=== PATIENT | male | born 1960 | race Hispanic/Latino ===

== ENCOUNTER 2016-09-14 12:08 | Inpatient (IN) | payer MEDICAID ==
[2016-09-14 14:58] VITALS: BMI 21.9
--- NOTE | 2016-09-14 17:02 | CP.PCM.HP ---
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 CTA head showed R M1 occulsion. Patient is transferred from [facility]. Patient presented with L sided weakness, and is currently about a 1/5 upper and lower extremities with some facial droop. Patient did not require any surgical intervention and was transferred here for further rehab needs. ROS: per HPI, 12 systems reviewed and negative PMH: remote hx of asthma, psoriasis, implanted loop recorder PSH: none FH: HTN, CVA SH: 1 cigarette daily, "many years" occasional marijuana use. Meds: as below Allergies: NKDA Vitals: reviewed and currently stable Exam: GEN: WDWN, alert, cooperative L sided mild facial droop HEENT: NCAT, PERRL, EOMI NECK: supple, no JVD, no lymphadenopathy CARDIAC: +S1S2 RRR LUNG: CTAB No WRR ABD: SOFT NT ND BSX4 NO MASSES NO HSM EXT: +pedal pulses,L sided weakness NEURO: AAOx3 SKIN warm, dry PSYCH normal mood, normal affect Labs: reviewed in chart Active Medications: Allergies No Known Allergies Allergy (Verified 09/14/16 13:30) Height & Weight Height 5 ft 8 in Weight 144 lb Start Date/Time Active Medications 09/14/16 17:00 Betamethasone Valerate [Valisone] 1 applic TP BID 09/14/16 22:00 Heparin 5,000 units SC Q8 Anticoagulation Clinical Indication: DVT/PE Prevention 09/15/16 09:00 Aspirin [Aspirin Chewable] 81 mg PO DAILY Atorvastatin [Lipitor] 80 mg PO HS Assessment and Plan: 55 year old male PMH remote hx of asthma, psoriasis, implanted loop recorder presents to [facility] 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 CTA head showed R M1 occulsion. Patient is transferred from [facility]. Patient presented with L sided weakness, and is currently about a 1/5 upper and lower extremities with some facial droop. Patient did not require any surgical intervention and was transferred here for further rehab needs. 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 CTA head showed R M1 occulsion cont ASA, statin PT / OT / ST Physiatry consult Dr. Siu SCDs Heparin for VTE ppx Present on Admission - Present on Admission Any Indicators Present on Admission: No Past Patient History - Past Medical History & Family History Past Medical History?: Yes - Past Social History Smoking Status: Light Smoker < 10 Cigarettes Daily - CARDIAC Hx Cardiac Disorders: Yes Other/Comment: implanted loop recorder 09/10/16 - PULMONARY Hx Asthma: Yes - NEUROLOGICAL Hx Neurological Disorder: No - HEENT Hx HEENT Problems: No - RENAL Hx Chronic Kidney Disease: No - ENDOCRINE/METABOLIC Hx Endocrine Disorders: No - HEMATOLOGICAL/ONCOLOGICAL Hx Blood Disorders: No - INTEGUMENTARY Hx Psoriasis: Yes - MUSCULOSKELETAL/RHEUMATOLOGICAL Hx Musculoskeletal Disorders: No Hx Falls: No - GASTROINTESTINAL Hx Gastrointestinal Disorders: No - GENITOURINARY/GYNECOLOGICAL Hx Genitourinary Disorders: No - PSYCHIATRIC Hx Psychophysiologic Disorder: No Hx Substance Use: Yes - SURGICAL HISTORY Hx Surgeries: No - ANESTHESIA Hx Anesthesia: No Meds Allergies/Adverse Reactions: Allergies Allergy/AdvReac Type Severity Reaction Status Date / Time No Known Allergies Allergy Verified 09/14/16 13:30 Results - Vital Signs Recent Vital Signs: Last Vital Signs Temp 98.4 F 09/14/16 15:59 Pulse 63 09/14/16 15:59 Resp 21 09/14/16 15:59 BP 162/61 H 09/14/16 15:59 Pulse Ox 96 09/14/16 15:59
--- NOTE | 2016-09-14 17:37 | CP.PCM.CON ---
History of Present Illness - History of Present Illness History of Present Illness: Dr Siu PMR consultation on Gerardo Worrell, born 1960, who has been admitted to [facility] for acute inpatient rehabilitation following an admission at [facility] with acute onset of left HP secondary to a right MCA distribution infarct. He is right hand dominant. 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 Review of Systems - Constitutional Constitutional: absent: Anorexia, Chills - EENT Eyes: absent: Blurred Vision Ears: absent: Decreased Hearing Nose/Mouth/Throat: absent: Nasal Congestion - Cardiovascular Cardiovascular: absent: Chest Pain - Respiratory Respiratory: absent: Cough, Dyspnea - Gastrointestinal Gastrointestinal: absent: Abdominal Pain - Musculoskeletal Musculoskeletal: absent: Arthralgias, Back Pain - Integumentary Integumentary: absent: Bleeding Lesions - Neurological Neurological: absent: Abnormal Movements Past Patient History - Past Medical History & Family History Past Medical History?: Yes - Past Social History Smoking Status: Light Smoker < 10 Cigarettes Daily Alcohol: Occasional Drugs: Denies Home Situation {Lives}: Friends - CARDIAC Hx Cardiac Disorders: Yes Other/Comment: implanted loop recorder 09/10/16 - PULMONARY Hx Asthma: Yes - NEUROLOGICAL Hx Neurological Disorder: No - HEENT Hx HEENT Problems: No - RENAL Hx Chronic Kidney Disease: No - ENDOCRINE/METABOLIC Hx Endocrine Disorders: No - HEMATOLOGICAL/ONCOLOGICAL Hx Blood Disorders: No - INTEGUMENTARY Hx Psoriasis: Yes - MUSCULOSKELETAL/RHEUMATOLOGICAL Hx Musculoskeletal Disorders: No Hx Falls: No - GASTROINTESTINAL Hx Gastrointestinal Disorders: No - GENITOURINARY/GYNECOLOGICAL Hx Genitourinary Disorders: No - PSYCHIATRIC Hx Psychophysiologic Disorder: No Hx Substance Use: Yes - SURGICAL HISTORY Hx Surgeries: No - ANESTHESIA Hx Anesthesia: No Meds Allergies/Adverse Reactions: Allergies Allergy/AdvReac Type Severity Reaction Status Date / Time No Known Allergies Allergy Verified 09/14/16 13:30 - Medications Medications: Current Medications Aspirin (Aspirin Chewable) 81 mg PO DAILY [facility] Betamethasone Valerate (Valisone) applic TP BID [facility] Heparin Sodium (Porcine) (Heparin) 5,000 units SC Q8 [facility] PRN Reason: Protocol Home Med (Atorvastatin [Lipitor]) 80 mg PO HS [facility] Physical Exam - Constitutional Appears: Non-toxic, No Acute Distress - Head Exam Head Exam: ATRAUMATIC, NORMAL INSPECTION, NORMOCEPHALIC - Eye Exam Eye Exam: EOMI - ENT Exam ENT Exam: Mucous Membranes Moist - Neck Exam Neck exam: Negative for: Meningismus - Respiratory Exam Respiratory Exam: NORMAL BREATHING PATTERN - Cardiovascular Exam Cardiovascular Exam: REGULAR RHYTHM - GI/Abdominal Exam GI & Abdominal Exam: Normal Bowel Sounds. absent: Distended, Firm - Extremities Exam Extremities exam: Negative for: calf tenderness, pedal edema - Neurological Exam Neurological exam: Alert, CN II-XII Intact, Oriented x3 - Skin Skin Exam: Warm Results - Vital Signs Recent Vital Signs: Last Vital Signs Temp 98.4 F 09/14/16 15:59 Pulse 63 09/14/16 15:59 Resp 21 09/14/16 15:59 BP 162/61 H 09/14/16 15:59 Pulse Ox 96 09/14/16 15:59 Assessment & Plan - Assessment and Plan (Free Text) Assessment: Gerardo had a right CVA, MCA distribution, with left HP 2-/5 UE 3-/5 LE he is lethargic now and this may have affected his MMT PT/OT to continue to help increase functional independence Team conference for d/c planning Pain: controlled Vascular: no evidence of DVT GI: No evidence of constipation or diarrhea Patient is an excellent acute rehabilitation candidate and will have focused speech, PT, OT and recreational therapy to help facilitate a safe and appropriate d/c plan Impairment code 01.1
--- NOTE | 2016-09-14 17:41 | CP.PCM.PN ---
Subjective - Date & Time of Evaluation Date of Evaluation: 09/14/16 Time of Evaluation: 17:40 - Subjective Subjective: right CVA, left HP Objective - Vital Signs/Intake and Output Vital Signs (last 24 hours): Temp Pulse Resp BP Pulse Ox 98.4 F 63 21 162/61 H 96 09/14/16 15:59 09/14/16 15:59 09/14/16 15:59 09/14/16 15:59 09/14/16 15:59 - Medications Medications: Current Medications Aspirin (Aspirin Chewable) 81 mg PO DAILY [facility] Atorvastatin Calcium (Lipitor) 80 mg PO HS [facility] Betamethasone Valerate (Valisone) 1 applic TP BID [facility] Heparin Sodium (Porcine) (Heparin) 5,000 units SC Q8 [facility] PRN Reason: Protocol Physiatry Overall Plan of Care - Overall Plan of Care Estimated Length of Stay in Weeks: 3 Rehab Impairment: Mobility, Gait, Speech, Balance, Coordination Etiologic Diagnosis: Cerebrovascular Accident Rehab/Medical Prognosis: Fair - Anticipated Interventions Physical Therapy:: Yes Occupational Therapy:: Yes Speech Therapy:: Yes Recreational Therapy:: Yes - Therapy Goals Bed Mobility: Supervision Ambulation: Supervision Functional Positional Changes:: Supervision - Discharge Plan Identification of Barriers to Discharge: Home Situation Discharge Destination: Home
[2016-09-14] MEDS ORDERED: Patient's Own Med (Atorvastatin [Lipitor] 80 MG) PO SCH (22:00)
--- NOTE | 2016-09-15 13:13 | PSY.TMCNF ---
Nursing - Vital Signs Vital Signs (Last 8 hours): Vital Signs 09/15/16 09/15/16 07:33 09:00 Temperature 97.5 F L 97.5 F L Pulse Rate 59 L 59 L Respiratory 20 20 Rate Blood Pressure 108/60 108/60 O2 Sat by Pulse 98 Oximetry Pain: 0 - Precautions: Precautions: Fall Prevention - Medications/Other Issues Comment: to follow as per nutrition protocol - Consults Comment: Dr. Siu - Toileting Toileting: Moderate Assistance - Bladder Management Bladder Pattern: Normal Voiding Method: Urinal Bladder Management: Moderate Assistance - Bowel Management Bowel Pattern: Normal Bowel Management: Moderate Assistance - Transfers Transfers: Moderate Assistance - ADL's ADL's: Moderate Assistance - Pain Management Comments: Denies pain - Patient/Family Teaching Comments: Post CVA care, Safety - Goals/Time Frame Comments: Per IPOC . Physical Therapy - Bed Mobility Bed Mobility: Contact Guard - Transfers Wheelchair to Mat: Contact Guard Sit to Stand: Contact Guard - Ambulation Level of Assistance: Moderate Assistance Distance (ft.): 25 - Provider Therapist: Gabriela Aj Occupational Therapy - Arousal/Attention/Orientation Patient Orientation: Person, Place, Time Speech Therapy - Assessment Dysphagia/Swallowing Impairment: Mild - Plan Plan: Continue Dysphagia Therapy Nutrition - Current Diet Current Diet/ Supplement/ Feedings: Heart healthy mech altered(finely chopped) thin liquids - Appetite Percent Meal Consumed: 75-100% - Comments Comments: Post CVA care, Safety - Assessment/Goals/Time Frame Assessment/Goals/Time Frame: to follow as per nutrition protocol - Provider Provider: Cara Ohsea RD Case Management - Discharge Plan Discharge Plan: Home with significant other/family (has steps)
--- NOTE | 2016-09-15 13:26 | CP.PCM.PN ---
Subjective - Date & Time of Evaluation Date of Evaluation: 09/15/16 Time of Evaluation: 13:25 - Subjective Subjective: Patient seen and is doing ok much more talkative today he has some isolated finger movement as well denies sob/cp excellent acute rehab candidate Objective - Vital Signs/Intake and Output Vital Signs (last 24 hours): Temp Pulse Resp BP Pulse Ox 97.5 F L 59 L 20 108/60 98 09/15/16 09:00 09/15/16 09:00 09/15/16 09:00 09/15/16 09:00 09/15/16 07:33 - Medications Medications: Current Medications Aspirin (Aspirin Chewable) 81 mg PO DAILY [facility] Last Admin: 09/15/16 09:07 Dose: 81 mg Atorvastatin Calcium (Lipitor) 80 mg PO HS [facility] Last Admin: 09/15/16 09:07 Dose: Not Given Betamethasone Valerate (Valisone) 1 applic TP BID [facility] Last Admin: 09/15/16 09:06 Dose: 1 applic Heparin Sodium (Porcine) (Heparin) 5,000 units SC Q8 [facility] PRN Reason: Protocol Last Admin: 09/15/16 06:22 Dose: 5,000 units
--- NOTE | 2016-09-16 16:29 | CP.PCM.PN ---
Subjective - Date & Time of Evaluation Date of Evaluation: 09/16/16 Time of Evaluation: 14:00 - Subjective Subjective: Pt seen and examined. No complaint. Objective - Vital Signs/Intake and Output Vital Signs (last 24 hours): Temp Pulse Resp BP Pulse Ox 97.5 F L 71 19 111/67 96 09/16/16 08:34 09/16/16 08:34 09/16/16 08:34 09/16/16 08:34 09/16/16 08:34 - Medications Medications: Current Medications Aspirin (Aspirin Chewable) 81 mg PO DAILY [facility] Last Admin: 09/16/16 08:57 Dose: 81 mg Atorvastatin Calcium (Lipitor) 80 mg PO HS [facility] Last Admin: 09/15/16 21:33 Dose: 80 mg Betamethasone Valerate (Valisone) 1 applic TP BID [facility] Last Admin: 09/16/16 08:57 Dose: 1 applic Heparin Sodium (Porcine) (Heparin) 5,000 units SC Q8 [facility] PRN Reason: Protocol Last Admin: 09/16/16 14:00 Dose: 5,000 units - Constitutional Appears: No Acute Distress - Head Exam Head Exam: ATRAUMATIC - Eye Exam Eye Exam: absent: Scleral icterus - ENT Exam ENT Exam: Mucous Membranes Moist - Neck Exam Neck Exam: absent: Meningismus - Respiratory Exam Respiratory Exam: absent: Rhonchi, Wheezes, Respiratory Distress - Cardiovascular Exam Cardiovascular Exam: REGULAR RHYTHM, +S1, +S2 - GI/Abdominal Exam GI & Abdominal Exam: Soft. absent: Tenderness - Rectal Exam Rectal Exam: Deferred - Neurological Exam Neurological Exam: Alert, Oriented x3 - Psychiatric Exam Psychiatric exam: Normal Affect - Skin Skin Exam: Dry, Intact Assessment and Plan - Assessment and Plan (Free Text) Assessment: 55 yo male with history of asthma, psoriasis, implanted loop recorder was transferred from [facility] to acute rehab to undergo PT/OT after suffering from 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 1. CVA with left sided weakness continue PT/OT on ASA, statin physiatry consult with Dr Siu 2. Asthma asymptomatic
[2016-09-17 12:39] LABS: HEMOGLOBIN 14.9 g/dL (12.0-18.0); MEAN CELL VOLUME 91.1 fl (80.0-94.0); MEAN CORPUSCULAR HEMOGLOBIN 30.7 pg (27.0-31.0); MEAN CORPUSCULAR HGB CONC 33.6 g/dL (33.0-37.0); RBC 4.87 Mil/uL (4.40-5.90); RED CELL DISTRIBUTION WIDTH 14.4 % (11.5-14.5); WHITE BLOOD COUNT 7.7 K/uL (4.8-10.8)
[2016-09-17 12:46] LABS: BLOOD UREA NITROGEN 19 mg/dl (9-20); CALCIUM 9.4 mg/dL (8.4-10.2); GFR AFRICAN-AMERICAN > 60; GFR NON-AFRICAN AMERICAN > 60
[2016-09-17 12:47] LABS: PROTHROMBIN TIME 11.1 Seconds (9.8-13.1)
--- NOTE | 2016-09-17 17:56 | CP.PCM.PN ---
Subjective - Date & Time of Evaluation Date of Evaluation: 09/17/16 Time of Evaluation: 17:55 - Subjective Subjective: Patient seen in room keeping busy with room activities denies sob/cp ambulating 30' with NBQC has reduced insight into his deficits and how it will realistically impact his function at home continue current care Objective - Vital Signs/Intake and Output Vital Signs (last 24 hours): Temp Pulse Resp BP Pulse Ox 98.5 F 76 23 121/75 94 L 09/17/16 08:26 09/17/16 08:26 09/17/16 08:26 09/17/16 08:26 09/17/16 08:26 - Medications Medications: Current Medications Aspirin (Aspirin Chewable) 81 mg PO DAILY [facility] BEDS AT [facility] Last Admin: 09/17/16 09:10 Dose: 81 mg Atorvastatin Calcium (Lipitor) 80 mg PO HS [facility]S [facility]CLUDE 234 BEDS AT [facility] Last Admin: 09/16/16 21:07 Dose: 80 mg Betamethasone Valerate (Valisone) 1 applic TP BID [facility] 234 BEDS AT [facility] Last Admin: 09/17/16 17:18 Dose: 1 applic Heparin Sodium (Porcine) (Heparin) 5,000 units SC Q8 [facility]S [facility] 234 BEDS AT [facility] PRN Reason: Protocol Last Admin: 09/17/16 14:00 Dose: 5,000 units - Labs Labs: 09/17/16 12:25 09/17/16 12:25 PT 11.1 Seconds (9.8-13.1) 09/17/16 12:25 INR 1.0 (0.9-1.2) 09/17/16 12:25
[2016-09-18] MEDS: Enoxaparin 40 mg Syringe SC SCH (08:11)
--- NOTE | 2016-09-18 15:03 | CP.PCM.PN ---
Subjective - Date & Time of Evaluation Date of Evaluation: 09/18/16 Time of Evaluation: 11:20 - Subjective Subjective: Pt seen and examined. Denied any complaint. Objective - Vital Signs/Intake and Output Vital Signs (last 24 hours): Temp Pulse Resp BP Pulse Ox 98.3 F 72 21 117/66 97 09/18/16 08:42 09/18/16 08:42 09/18/16 08:42 09/18/16 08:42 09/18/16 08:42 - Medications Medications: Current Medications Aspirin (Aspirin Chewable) 81 mg PO DAILY [facility] Last Admin: 09/18/16 08:11 Dose: 81 mg Atorvastatin Calcium (Lipitor) 80 mg PO HS [facility] Last Admin: 09/17/16 21:14 Dose: 80 mg Betamethasone Valerate (Valisone) 1 applic TP BID [facility] Last Admin: 09/18/16 08:12 Dose: 1 applic Enoxaparin Sodium (Lovenox) 40 mg SC DAILY [facility] PRN Reason: Protocol Last Admin: 09/18/16 08:11 Dose: 40 mg - Labs Labs: 09/17/16 12:25 09/17/16 12:25 PT 11.1 Seconds (9.8-13.1) 09/17/16 12:25 INR 1.0 (0.9-1.2) 09/17/16 12:25 - Constitutional Appears: No Acute Distress - Head Exam Head Exam: ATRAUMATIC - Eye Exam Eye Exam: absent: Scleral icterus - ENT Exam ENT Exam: Mucous Membranes Moist - Neck Exam Neck Exam: absent: Meningismus - Respiratory Exam Respiratory Exam: absent: Rhonchi, Wheezes, Respiratory Distress - Cardiovascular Exam Cardiovascular Exam: REGULAR RHYTHM, +S1, +S2 - GI/Abdominal Exam GI & Abdominal Exam: Soft. absent: Tenderness - Rectal Exam Rectal Exam: Deferred - Neurological Exam Neurological Exam: Alert, Oriented x3 - Psychiatric Exam Psychiatric exam: Normal Affect - Skin Skin Exam: Dry, Intact Assessment and Plan - Assessment and Plan (Free Text) Assessment: 55 yo male with history of asthma, psoriasis, implanted loop recorder was transferred from [facility] to acute rehab to undergo PT/OT after suffering from 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 1. CVA with left sided weakness continue PT/OT continue ASA and Lipitor physiatry consult with Dr Siu 2. Asthma asymptomatic
[2016-09-19] MEDS: Enoxaparin 40 mg Syringe SC SCH (08:27)
[2016-09-20 08:06] LABS: HEMOGLOBIN 14.9 g/dL (12.0-18.0); MEAN CELL VOLUME 91.5 fl (80.0-94.0); MEAN CORPUSCULAR HEMOGLOBIN 30.5 pg (27.0-31.0); MEAN CORPUSCULAR HGB CONC 33.3 g/dL (33.0-37.0); RBC 4.89 Mil/uL (4.40-5.90); RED CELL DISTRIBUTION WIDTH 14.4 % (11.5-14.5); WHITE BLOOD COUNT 9.6 K/uL (4.8-10.8)
[2016-09-20] MEDS: Enoxaparin 40 mg Syringe SC SCH (08:29)
[2016-09-21] MEDS: Enoxaparin 40 mg Syringe SC SCH (09:16)
--- NOTE | 2016-09-21 12:07 | CP.PCM.PN ---
Subjective - Date & Time of Evaluation Date of Evaluation: 09/21/16 Time of Evaluation: 17:15 - Subjective Subjective: Patient seen and examined bedside, Sitting in chair in NAD . Feeling better. Hemodynamically stable, afebrile. No acute issues overnight Participating well with PT Objective - Vital Signs/Intake and Output Vital Signs (last 24 hours): Temp Pulse Resp BP Pulse Ox 96.9 F L 68 22 110/67 97 09/21/16 08:41 09/21/16 08:41 09/21/16 08:41 09/21/16 08:41 09/21/16 08:41 - Medications Medications: Current Medications Aspirin (Aspirin Chewable) 81 mg PO DAILY [facility] Last Admin: 09/21/16 09:16 Dose: 81 mg Atorvastatin Calcium (Lipitor) 80 mg PO HS [facility] Last Admin: 09/20/16 21:24 Dose: 80 mg Betamethasone Valerate (Valisone) 1 applic TP BID [facility] Last Admin: 09/21/16 09:16 Dose: 1 applic Enoxaparin Sodium (Lovenox) 40 mg SC DAILY [facility] PRN Reason: Protocol Last Admin: 09/21/16 09:16 Dose: 40 mg - Labs Labs: 09/20/16 05:30 09/17/16 12:25 PT 11.1 Seconds (9.8-13.1) 09/17/16 12:25 INR 1.0 (0.9-1.2) 09/17/16 12:25 - Constitutional Appears: Non-toxic, No Acute Distress - Head Exam Head Exam: ATRAUMATIC, NORMAL INSPECTION, NORMOCEPHALIC - Eye Exam Eye Exam: EOMI, Normal appearance, PERRL Pupil Exam: NORMAL ACCOMODATION - ENT Exam ENT Exam: Mucous Membranes Moist, Normal Exam - Neck Exam Neck Exam: Full ROM, Normal Inspection - Respiratory Exam Respiratory Exam: Clear to Ausculation Bilateral, NORMAL BREATHING PATTERN. absent: Rales, Rhonchi, Wheezes - Cardiovascular Exam Cardiovascular Exam: REGULAR RHYTHM, RRR, +S1, +S2. absent: JVD - GI/Abdominal Exam GI & Abdominal Exam: Soft, Normal Bowel Sounds. absent: Distended, Guarding, Tenderness, Rebound - Rectal Exam Rectal Exam: Deferred - Extremities Exam Extremities Exam: Full ROM, Normal Capillary Refill, Normal Inspection. absent : Calf Tenderness, Pedal Edema - Back Exam Back Exam: NORMAL INSPECTION - Neurological Exam Neurological Exam: Alert, Awake, Oriented x3 Additional comments: left facila droop LUE 4/5 weakness - Psychiatric Exam Psychiatric exam: Normal Affect, Normal Mood - Skin Skin Exam: Dry, Intact, Normal Color, Warm Assessment and Plan - Assessment and Plan (Free Text) Assessment: 56 yo male with history of asthma, psoriasis, implanted loop recorder was transferred from [facility] to acute rehab to undergo PT/OT after suffering from 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 1. CVA with left sided weakness continue PT/OT continue ASA and Lipitor physiatry consult with Dr Siu appreciated Improving with PT 2. Asthma asymptomatic 3.DVT prophylaxis Lovenox
[2016-09-22] MEDS: Enoxaparin 40 mg Syringe SC SCH (08:33)
--- NOTE | 2016-09-22 13:12 | PSY.TMCNF ---
Nursing - Vital Signs Vital Signs (Last 8 hours): Vital Signs 09/22/16 09/22/16 08:54 09:00 Temperature 98.2 F 98.2 F Pulse Rate 67 67 Respiratory 22 22 Rate Blood Pressure 102/64 102/64 O2 Sat by Pulse 96 Oximetry Pain: 0 - Precautions: Precautions: Fall Prevention - Medications/Other Issues Comment: Safety - Consults Comment: Dr. Siu - Toileting Toileting: Moderate Assistance - Bladder Management Bladder Pattern: Normal Voiding Method: Toilet, Urinal Bladder Management: Moderate Assistance Frequency of Accidents: 0 - Bowel Management Bowel Pattern: Normal Bowel Management: Moderate Assistance - Transfers Transfers: Minimal Assistance - ADL's ADL's: Minimal Assistance - Pain Management Comments: Denies pain - Patient/Family Teaching Comments: Post CVA care, Safety - Goals/Time Frame Comments: Per IPOC - Provider Provider: Gabriela Aj Physical Therapy - Bed Mobility Bed Mobility: Supervision - Transfers Wheelchair to Mat: Verbal Cues, Contact Guard Sit to Stand: Verbal Cues, Contact Guard Comment: for L attention. with no AD and NBQC - Ambulation Level of Assistance: Verbal Cues, Contact Guard, Minimal Assistance Distance (ft.): 75 Assistive Devices: N/A, Narrow base quad cane - Stair Negotiation Stairs: Level of Assistance: Verbal Cues, Contact Guard Number of Stairs: 5 Stairs: Assistive Devices: Right Handrail Comment: practice stairs. mixed step to pattern - Standing Balance Static Stand: Contact Guard Assist Dynamic Stand: Contact Guard Assist Comment: unsupported - Pain Pain (assessed during therapy session): 0 - Insight/Carryover Insight/Carryover: Fair - Patient/Family Education Comment: ongoing re: pt. ed. re: CVA dx., rehab tx. and prognosis, DME, safety, L attention, ADLs and compensatory strategies, neuro re ed., functional training - Assessment/Plan Assessment: Pt. making progress in gait, L motor control, L LE sensation, balance but still distractable, L neglect, occas. inappropriate comments but able to be redirected and cued for both. Will cont. to benefit from intensive rehab to regain function and independence for safe return home with DME. - Goals Timeframe: 1 week Goals: supervision transfers. mod I bed moblity. CS amb. x 125ft. with no AD or st. cane. CS x 1 flight stairs. CS stnading balance dynamic standing unsupported x 10 minutes - Provider Therapist: Elizabeth Sims PT License Number: [id number] Occupational Therapy - Arousal/Attention/Orientation Patient Orientation: Person, Place, Appropriate to Situation - ADL/IADL Self Feeding: Supervision, Verbal Cues, Set-up Help Grooming: Supervision, Verbal Cues, Set-up Help Bathing-Upper Extremity: Minimal Assistance Bathing-Lower Extremity: Minimal Assistance Dressing-Upper Extremity: Minimal Assistance Dressing-Lower Extremity: Minimal Assistance - Sitting Balance Static Sitting: Supervision Dynamic Sitting: Minimal Assistance - Transfers Wheelchair to Bed Transfers: Verbal Cues, Set-up Help, Minimal Assistance Toilet Transfers: Verbal Cues, Set-up Help, Minimal Assistance - Upper Extremity Status Right Upper Extremity Comment: WFL Left Upper Extremity Comment: Pt noted to have a 1/2 finger subluxation to L glenohumeral joint. Pt with some active movement in all planes when gravity is eliminated with exception to wrist extension - Pain Pain (assessed during therapy session): 0 - Insight/Carryover Insight/Carryover: Fair - Patient/Family Education Comment: ongoing re: pt. ed. re: CVA dx., rehab tx. and prognosis, DME, safety, L attention, ADLs and compensatory strategies, neuro re ed., functional training - Assessment/Plan Assessment: Pt. making progress in gait, L motor control, L LE sensation, balance but still distractable, L neglect, occas. inappropriate comments but able to be redirected and cued for both. Will cont. to benefit from intensive rehab to regain function and independence for safe return home with DME. - Goals Timeframe: 1 week Goals: supervision transfers. mod I bed moblity. CS amb. x 125ft. with no AD or st. cane. CS x 1 flight stairs. CS stnading balance dynamic standing unsupported x 10 minutes - Provider Therapist: Aminah Glasgow Speech Therapy - Consult Information Patient on Program: Yes Medical Diagnosis: CVA Treatment Diagnosis: cognitive deficits - Assessment Problem Solving Impairment: Mild Memory Impairment: Mild Speech/Articulation Impairment: Mild Dysphagia/Swallowing Impairment: Mild - Plan Assessment: Pt. making progress in gait, L motor control, L LE sensation, balance but still distractable, L neglect, occas. inappropriate comments but able to be redirected and cued for both. Will cont. to benefit from intensive rehab to regain function and independence for safe return home with DME. - Provider Therapist: Vidya Barrios License Number: [id number] Recreational Therapy - Participation Participation: Participates in Individual and/or Group Sessions - Attendance Attendance: 3-5 times per week - Activities Leisure Activities: Cards and Games - Socialization Level of Socialization: Initiates/interacts freely with care givers and peer - Diversional Time Diversional Time: has laptop in room, agreeable to participate in recreation therapy tasks - Assessment Assessment/Plan: Pt. making progress in gait, L motor control, L LE sensation, balance but still distractable, L neglect, occas. inappropriate comments but able to be redirected and cued for both. Will cont. to benefit from intensive rehab to regain function and independence for safe return home with DME. - Provider Therapist: Rebecca Akins, [employer]LE[employer] ANALYST #[id number] Nutrition - Current Diet Current Diet/ Supplement/ Feedings: heart healthly advanced bite size thin liquids - Appetite Percent Meal Consumed: 75-100% - Comments Comments: Post CVA care, Safety - Assessment/Goals/Time Frame Assessment/Goals/Time Frame: Safety - Provider Provider: Cara Oshea RD Case Management - Discharge Plan Discharge Plan: Home with significant other/family (has steps) Rehabilitation Plan - Treatment Plan Treatment Plan: Physical Therapy, Occupational Therapy, Speech, Dietary, Patient /Family Education - Discharge Plan Estimated Date of Discharge: 10/03/16 Discharge to: Subacute
--- NOTE | 2016-09-22 13:34 | CP.PCM.PN ---
Subjective - Date & Time of Evaluation Date of Evaluation: 09/22/16 Time of Evaluation: 13:33 - Subjective Subjective: patient seen in room poor insight into his functional status not able to d/c home and will need to have ISAAC. He has made progress but not safe Objective - Vital Signs/Intake and Output Vital Signs (last 24 hours): Temp Pulse Resp BP Pulse Ox 98.2 F 67 22 102/64 96 09/22/16 09:00 09/22/16 09:00 09/22/16 09:00 09/22/16 09:00 09/22/16 08:54 - Medications Medications: Current Medications Acetaminophen (Tylenol 325mg Tab) 650 mg PO Q6 PRN PRN Reason: Pain, Mild (1-3) Aspirin (Aspirin Chewable) 81 mg PO DAILY [facility] Last Admin: 09/22/16 08:34 Dose: 81 mg Atorvastatin Calcium (Lipitor) 80 mg PO HS [facility] Last Admin: 09/21/16 21:28 Dose: 80 mg Betamethasone Valerate (Valisone) 1 applic TP BID [facility] Last Admin: 09/22/16 08:33 Dose: 1 applic Docusate Sodium (Colace) 100 mg PO BID [facility] Last Admin: 09/22/16 08:34 Dose: 100 mg Enoxaparin Sodium (Lovenox) 40 mg SC DAILY [facility] PRN Reason: Protocol Last Admin: 09/22/16 08:33 Dose: 40 mg - Labs Labs: 09/20/16 05:30 09/17/16 12:25 PT 11.1 Seconds (9.8-13.1) 09/17/16 12:25 INR 1.0 (0.9-1.2) 09/17/16 12:25
[2016-09-23 07:30] LABS: HEMOGLOBIN 14.7 g/dL (12.0-18.0); MEAN CELL VOLUME 91.3 fl (80.0-94.0); MEAN CORPUSCULAR HEMOGLOBIN 30.3 pg (27.0-31.0); MEAN CORPUSCULAR HGB CONC 33.2 g/dL (33.0-37.0); RBC 4.86 Mil/uL (4.40-5.90); WHITE BLOOD COUNT 11.9 K/uL (4.8-10.8)
[2016-09-23] MEDS: Enoxaparin 40 mg Syringe SC SCH (08:28)
--- NOTE | 2016-09-23 17:13 | CP.PCM.PN ---
Subjective - Date & Time of Evaluation Date of Evaluation: 09/23/16 Time of Evaluation: 17:13 - Subjective Subjective: Patient with really nice gains today ambulated 100' without an AD no pain continue current care Objective - Vital Signs/Intake and Output Vital Signs (last 24 hours): Temp Pulse Resp BP Pulse Ox 97.3 F L 68 20 94/56 L 98 09/23/16 08:27 09/23/16 08:27 09/23/16 08:27 09/23/16 08:27 09/23/16 08:27 - Medications Medications: Current Medications Acetaminophen (Tylenol 325mg Tab) 650 mg PO Q6 PRN PRN Reason: Pain, Mild (1-3) Aspirin (Aspirin Chewable) 81 mg PO DAILY [facility] Last Admin: 09/23/16 08:28 Dose: 81 mg Atorvastatin Calcium (Lipitor) 80 mg PO HS [facility] Last Admin: 09/22/16 21:40 Dose: 80 mg Betamethasone Valerate (Valisone) 1 applic TP BID [facility] Last Admin: 09/23/16 16:55 Dose: 1 applic Docusate Sodium (Colace) 100 mg PO BID [facility] Last Admin: 09/23/16 16:54 Dose: 100 mg Enoxaparin Sodium (Lovenox) 40 mg SC DAILY [facility] PRN Reason: Protocol Last Admin: 09/23/16 08:28 Dose: 40 mg - Labs Labs: 09/23/16 05:40 09/17/16 12:25 PT 11.1 Seconds (9.8-13.1) 09/17/16 12:25 INR 1.0 (0.9-1.2) 09/17/16 12:25
--- NOTE | 2016-09-23 17:55 | CP.PCM.PN ---
Subjective - Date & Time of Evaluation Date of Evaluation: 09/23/16 Time of Evaluation: 17:54 - Subjective Subjective: PT PARTICIPATING WITH PT WELL PATIENT STATES HE IS IMPROVING HD STABLE NO ACUTE EVENTS OVERNIGHT NO NEW WEAKNESSES OR DEFICITS NAD Objective - Vital Signs/Intake and Output Vital Signs (last 24 hours): Temp Pulse Resp BP Pulse Ox 97.3 F L 68 20 94/56 L 98 09/23/16 08:27 09/23/16 08:27 09/23/16 08:27 09/23/16 08:27 09/23/16 08:27 - Medications Medications: Current Medications Acetaminophen (Tylenol 325mg Tab) 650 mg PO Q6 PRN PRN Reason: Pain, Mild (1-3) Aspirin (Aspirin Chewable) 81 mg PO DAILY [facility] Last Admin: 09/23/16 08:28 Dose: 81 mg Atorvastatin Calcium (Lipitor) 80 mg PO HS [facility] Last Admin: 09/22/16 21:40 Dose: 80 mg Betamethasone Valerate (Valisone) 1 applic TP BID [facility] Last Admin: 09/23/16 16:55 Dose: 1 applic Docusate Sodium (Colace) 100 mg PO BID [facility] Last Admin: 09/23/16 16:54 Dose: 100 mg Enoxaparin Sodium (Lovenox) 40 mg SC DAILY [facility] PRN Reason: Protocol Last Admin: 09/23/16 08:28 Dose: 40 mg - Labs Labs: 09/23/16 05:40 09/17/16 12:25 PT 11.1 Seconds (9.8-13.1) 09/17/16 12:25 INR 1.0 (0.9-1.2) 09/17/16 12:25 - Constitutional Appears: Non-toxic, No Acute Distress - Head Exam Head Exam: ATRAUMATIC, NORMOCEPHALIC - Eye Exam Eye Exam: EOMI, Normal appearance, PERRL - ENT Exam ENT Exam: Mucous Membranes Moist, Normal Exam - Neck Exam Neck Exam: Full ROM, Normal Inspection. absent: Lymphadenopathy - Respiratory Exam Respiratory Exam: Clear to Ausculation Bilateral, NORMAL BREATHING PATTERN - Cardiovascular Exam Cardiovascular Exam: REGULAR RHYTHM, +S1, +S2. absent: Murmur - GI/Abdominal Exam GI & Abdominal Exam: Soft, Normal Bowel Sounds. absent: Tenderness - Extremities Exam Extremities Exam: Normal Capillary Refill. absent: Joint Swelling - Back Exam Back Exam: absent: CVA tenderness (L), CVA tenderness (R) - Neurological Exam Neurological Exam: Alert, Awake - Psychiatric Exam Psychiatric exam: Normal Affect, Normal Mood - Skin Skin Exam: Dry, Intact, Normal Color, Warm Assessment and Plan - Assessment and Plan (Free Text) Plan: 56 yo male with history of asthma, psoriasis, implanted loop recorder was transferred from [facility] to acute rehab to undergo PT/OT after suffering from 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 1. CVA with left sided weakness continue PT/OT continue ASA and Lipitor physiatry consult with Dr Siu appreciated Improving with PT, Continues to do well 2. Asthma asymptomatic 3.DVT prophylaxis Lovenox
[2016-09-24] MEDS: Enoxaparin 40 mg Syringe SC SCH (08:27)
[2016-09-25] MEDS: Enoxaparin 40 mg Syringe SC SCH (08:43)
--- NOTE | 2016-09-25 14:35 | CP.PCM.PN ---
Subjective - Date & Time of Evaluation Date of Evaluation: 09/25/16 Time of Evaluation: 14:34 - Subjective Subjective: PT PARTICIPATING WITH PT DOING WELL AND IMPROVING UPPER EXTREMITY STRENGTH NO COMPLAINTS HD STABLE Objective - Vital Signs/Intake and Output Vital Signs (last 24 hours): Temp Pulse Resp BP Pulse Ox 97.5 F L 55 L 20 105/65 98 09/25/16 07:56 09/25/16 07:56 09/25/16 07:56 09/25/16 07:56 09/25/16 07:56 - Medications Medications: Current Medications Acetaminophen (Tylenol 325mg Tab) 650 mg PO Q6 PRN PRN Reason: Pain, Mild (1-3) Aspirin (Aspirin Chewable) 81 mg PO DAILY [facility] Last Admin: 09/25/16 08:44 Dose: 81 mg Atorvastatin Calcium (Lipitor) 80 mg PO HS [facility] Last Admin: 09/24/16 21:04 Dose: 80 mg Betamethasone Valerate (Valisone) 1 applic TP BID [facility] Last Admin: 09/25/16 08:44 Dose: 1 applic Docusate Sodium (Colace) 100 mg PO BID [facility] Last Admin: 09/25/16 08:43 Dose: 100 mg Enoxaparin Sodium (Lovenox) 40 mg SC DAILY [facility] PRN Reason: Protocol Last Admin: 09/25/16 08:43 Dose: 40 mg - Labs Labs: 09/23/16 05:40 09/17/16 12:25 PT 11.1 Seconds (9.8-13.1) 09/17/16 12:25 INR 1.0 (0.9-1.2) 09/17/16 12:25 - Constitutional Appears: Non-toxic, No Acute Distress - Head Exam Head Exam: ATRAUMATIC, NORMOCEPHALIC - Eye Exam Eye Exam: EOMI, Normal appearance, PERRL Pupil Exam: NORMAL ACCOMODATION - ENT Exam ENT Exam: Mucous Membranes Moist, Normal Exam - Neck Exam Neck Exam: Full ROM, Normal Inspection. absent: Lymphadenopathy - Respiratory Exam Respiratory Exam: Clear to Ausculation Bilateral, NORMAL BREATHING PATTERN - Cardiovascular Exam Cardiovascular Exam: REGULAR RHYTHM, +S1, +S2. absent: Murmur - GI/Abdominal Exam GI & Abdominal Exam: Soft, Normal Bowel Sounds. absent: Tenderness - Extremities Exam Extremities Exam: Normal Capillary Refill. absent: Calf Tenderness - Back Exam Back Exam: absent: CVA tenderness (L), CVA tenderness (R) - Neurological Exam Neurological Exam: Alert, Awake - Psychiatric Exam Psychiatric exam: Normal Affect, Normal Mood - Skin Skin Exam: Dry, Intact, Normal Color, Warm Assessment and Plan - Assessment and Plan (Free Text) Plan: 56 yo male with history of asthma, psoriasis, implanted loop recorder was transferred from [facility] to acute rehab to undergo PT/OT after suffering from 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 1. CVA with left sided weakness continue PT/OT continue ASA and Lipitor physiatry consult with Dr Siu appreciated Improving with PT, Continues to do well 2. Asthma asymptomatic 3.DVT prophylaxis Lovenox
[2016-09-26] MEDS: Enoxaparin 40 mg Syringe SC SCH (08:59)
[2016-09-27 08:19] LABS: HEMOGLOBIN 14.4 g/dL (12.0-18.0); MEAN CELL VOLUME 90.2 fl (80.0-94.0); MEAN CORPUSCULAR HEMOGLOBIN 30.9 pg (27.0-31.0); MEAN CORPUSCULAR HGB CONC 34.2 g/dL (33.0-37.0); RBC 4.68 Mil/uL (4.40-5.90); RED CELL DISTRIBUTION WIDTH 13.6 % (11.5-14.5); WHITE BLOOD COUNT 11.3 K/uL (4.8-10.8)
[2016-09-27] MEDS: Enoxaparin 40 mg Syringe SC SCH (08:45)
[2016-09-28] MEDS: Enoxaparin 40 mg Syringe SC SCH (08:07)
--- NOTE | 2016-09-28 12:44 | CP.PCM.CON ---
History of Present Illness - History of Present Illness History of Present Illness: Psychiatry consult called to evaluate for depression CC: "I'm not treated with any empathy here" HPI: 55 year old male PMH remote hx of asthma, psoriasis, implanted loop recorder presents to [facility] s/p CVA R MCA with R MCA thrombus. CTA head showed R M1 occlusion. Patient is transferred from [facility]. Patient presented with L sided weakness, and is currently about a 1/5 upper and lower extremities with some facial droop. Patient did not require any surgical intervention and was transferred here for further rehab needs. Patient reports that he does not feel significantly depressed or anxious. He is angry at how he is treated, stating that he does not get empathy from staff and does not like to be watched while he is in the bathroom although he understands that it is for his own safety. NO kiko/delusions/paranoia/psychosis /hallucinations/suicidal ideation/homicidal ideation/lack of motivation or energy. PPH: Denies h/o mental illness, treatment or hospitalizations PMH: remote hx of asthma, psoriasis, implanted loop recorder PSH: none FH: HTN, CVA SH: 1 cigarette daily, "many years" occasional marijuana use. 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 Allergies: NKDA Impression: 55 yo w/ adjustment disorder, does not meet criteria for major depression or anxiety disorder. No acute psychiatric medications indicated. No inpatient hospitalization indicated. Past Patient History - Past Medical History & Family History Past Medical History?: Yes - Past Social History Smoking Status: Light Smoker < 10 Cigarettes Daily - CARDIAC Hx Cardiac Disorders: Yes Other/Comment: implanted loop recorder 09/10/16 - PULMONARY Hx Asthma: Yes - NEUROLOGICAL Hx Neurological Disorder: No - HEENT Hx HEENT Problems: No - RENAL Hx Chronic Kidney Disease: No - ENDOCRINE/METABOLIC Hx Endocrine Disorders: No - HEMATOLOGICAL/ONCOLOGICAL Hx Blood Disorders: No - INTEGUMENTARY Hx Psoriasis: Yes - MUSCULOSKELETAL/RHEUMATOLOGICAL Hx Musculoskeletal Disorders: No Hx Falls: No - GASTROINTESTINAL Hx Gastrointestinal Disorders: No - GENITOURINARY/GYNECOLOGICAL Hx Genitourinary Disorders: No - PSYCHIATRIC Hx Psychophysiologic Disorder: No Hx Substance Use: Yes - SURGICAL HISTORY Hx Surgeries: No - ANESTHESIA Hx Anesthesia: No Meds Allergies/Adverse Reactions: Allergies Allergy/AdvReac Type Severity Reaction Status Date / Time No Known Allergies Allergy Verified 09/14/16 13:30 - Medications Medications: Current Medications Acetaminophen (Tylenol 325mg Tab) 650 mg PO Q6 PRN PRN Reason: Pain, Mild (1-3) Aspirin (Aspirin Chewable) 81 mg PO DAILY [facility] Last Admin: 09/28/16 08:06 Dose: 81 mg Atorvastatin Calcium (Lipitor) 80 mg PO HS [facility] Last Admin: 09/27/16 21:21 Dose: 80 mg Betamethasone Valerate (Valisone) 1 applic TP BID [facility] Last Admin: 09/28/16 08:08 Dose: 1 applic Docusate Sodium (Colace) 100 mg PO BID [facility] Last Admin: 09/28/16 08:07 Dose: 100 mg Enoxaparin Sodium (Lovenox) 40 mg SC DAILY [facility] PRN Reason: Protocol Last Admin: 09/28/16 08:07 Dose: 40 mg Results - Vital Signs Recent Vital Signs: Last Vital Signs Temp 96.4 F L 09/28/16 07:42 Pulse 64 09/28/16 07:42 Resp 20 09/28/16 07:42 BP 111/70 09/28/16 07:42 Pulse Ox 97 09/28/16 07:42 - Labs Result Diagrams: 09/27/16 08:10 09/17/16 12:25
--- NOTE | 2016-09-28 17:04 | CP.PCM.PN ---
Subjective - Date & Time of Evaluation Date of Evaluation: 09/28/16 Time of Evaluation: 17:03 - Subjective Subjective: Patient seen in the room left HP making excellent gains and actually ambulated 250' without AD device today much improved left hand dexterity as well d/c is set for 10/03/16 Objective - Vital Signs/Intake and Output Vital Signs (last 24 hours): Temp Pulse Resp BP Pulse Ox 96.4 F L 64 20 111/70 97 09/28/16 07:42 09/28/16 07:42 09/28/16 07:42 09/28/16 07:42 09/28/16 07:42 - Medications Medications: Current Medications Acetaminophen (Tylenol 325mg Tab) 650 mg PO Q6 PRN PRN Reason: Pain, Mild (1-3) Aspirin (Aspirin Chewable) 81 mg PO DAILY [facility] Last Admin: 09/28/16 08:06 Dose: 81 mg Atorvastatin Calcium (Lipitor) 80 mg PO HS [facility] Last Admin: 09/27/16 21:21 Dose: 80 mg Betamethasone Valerate (Valisone) 1 applic TP BID [facility] Last Admin: 09/28/16 16:45 Dose: 1 applic Docusate Sodium (Colace) 100 mg PO BID [facility] Last Admin: 09/28/16 16:45 Dose: 100 mg Enoxaparin Sodium (Lovenox) 40 mg SC DAILY [facility] PRN Reason: Protocol Last Admin: 09/28/16 08:07 Dose: 40 mg - Labs Labs: 09/27/16 08:10 09/17/16 12:25 PT 11.1 Seconds (9.8-13.1) 09/17/16 12:25 INR 1.0 (0.9-1.2) 09/17/16 12:25
--- NOTE | 2016-09-28 20:48 | CP.PCM.PN ---
Subjective - Date & Time of Evaluation Date of Evaluation: 09/28/16 Time of Evaluation: 10:00 - Subjective Subjective: Pt seen and examined. Complained of not having privacy but otherwise claimed to be improving. Objective - Vital Signs/Intake and Output Vital Signs (last 24 hours): Temp Pulse Resp BP Pulse Ox 97.7 F 69 22 115/67 99 09/28/16 20:31 09/28/16 20:31 09/28/16 20:31 09/28/16 20:31 09/28/16 20:31 - Medications Medications: Current Medications Acetaminophen (Tylenol 325mg Tab) 650 mg PO Q6 PRN PRN Reason: Pain, Mild (1-3) Aspirin (Aspirin Chewable) 81 mg PO DAILY [facility] Last Admin: 09/28/16 08:06 Dose: 81 mg Atorvastatin Calcium (Lipitor) 80 mg PO HS [facility] Last Admin: 09/27/16 21:21 Dose: 80 mg Betamethasone Valerate (Valisone) 1 applic TP BID [facility] Last Admin: 09/28/16 16:45 Dose: 1 applic Docusate Sodium (Colace) 100 mg PO BID [facility] Last Admin: 09/28/16 16:45 Dose: 100 mg Enoxaparin Sodium (Lovenox) 40 mg SC DAILY [facility] PRN Reason: Protocol Last Admin: 09/28/16 08:07 Dose: 40 mg - Labs Labs: 09/27/16 08:10 09/17/16 12:25 PT 11.1 Seconds (9.8-13.1) 09/17/16 12:25 INR 1.0 (0.9-1.2) 09/17/16 12:25 - Constitutional Appears: No Acute Distress - Head Exam Head Exam: ATRAUMATIC - Eye Exam Eye Exam: absent: Scleral icterus - ENT Exam ENT Exam: Mucous Membranes Moist - Neck Exam Neck Exam: absent: Meningismus - Respiratory Exam Respiratory Exam: absent: Rhonchi, Wheezes, Respiratory Distress - Cardiovascular Exam Cardiovascular Exam: REGULAR RHYTHM, +S1, +S2 - GI/Abdominal Exam GI & Abdominal Exam: Soft. absent: Tenderness - Rectal Exam Rectal Exam: Deferred - Neurological Exam Neurological Exam: Alert, Oriented x3 - Psychiatric Exam Psychiatric exam: Normal Affect - Skin Skin Exam: Dry, Intact Assessment and Plan - Assessment and Plan (Free Text) Assessment: 56 yo male with history of asthma, psoriasis, implanted loop recorder was transferred from [facility] to acute rehab to undergo PT/OT after suffering from 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 1. CVA with left sided weakness continue PT/OT continue ASA and Lipitor physiatry consult with Dr Siu appreciated Improving with PT, Continues to do well 2. Asthma asymptomatic 3.DVT prophylaxis Lovenox
[2016-09-29] MEDS: Enoxaparin 40 mg Syringe SC SCH (08:16)
--- NOTE | 2016-09-29 13:16 | PSY.TMCNF ---
Nursing - Vital Signs Vital Signs (Last 8 hours): Vital Signs 09/29/16 09/29/16 08:43 10:00 Temperature 97.7 F 97.5 F L Pulse Rate 69 62 Respiratory 22 20 Rate Blood Pressure 115/67 117/71 O2 Sat by Pulse 98 Oximetry Pain: 0 - Precautions: Precautions: Fall Prevention - Medications/Other Issues Comment: Safety - Consults Comment: Dr. Siu, Dr. Guillen - Toileting Toileting: Minimal Assistance - Bladder Management Bladder Pattern: Normal Voiding Method: Toilet, Urinal Bladder Management: Contact Guard - Bowel Management Bowel Pattern: Normal Bowel Management: Moderate Assistance - Transfers Transfers: Contact Guard - ADL's ADL's: Minimal Assistance - Pain Management Comments: Denies pain - Patient/Family Teaching Comments: Post CVA care, Safety - Goals/Time Frame Comments: Per IPOC - Provider Provider: Gabriela Aj Physical Therapy - Bed Mobility Bed Mobility: Supervision - Transfers Sit to Stand: Supervision, Verbal Cues - Ambulation Level of Assistance: Supervision, Verbal Cues, Contact Guard Distance (ft.): 300 Assistive Devices: N/A - Stair Negotiation Stairs: Level of Assistance: Verbal Cues, Contact Guard Number of Stairs: 11 Handrails: Bilateral Stairs: Assistive Devices: Left Handrail, Right Handrail - Standing Balance Static Stand: Supervision Dynamic Stand: Contact Guard Assist - Pain Pain (assessed during therapy session): 0 - Insight/Carryover Insight/Carryover: Fair - Patient/Family Education Comment: Stroke recovery, neglect, fall prevention, safety, ADLs and ADL transfers compensatory stategies, pt requires continued education. - Assessment/Plan Assessment: Pt continues to make progress daily, however L neglect, impaired sensation, impulsivity poor attention and L hemiplegia continues to impact pt's independence and ability to fully comprehend compensatory strategies. Pt requires continued OT services 5-6x/week to maximize independence with ADLs and ADL transfers - Goals Timeframe: 1 week Goals: S with bathing. S with shower txfers. MOD I with toilet txfers. MOD I toileting. MOD I dressing. MOD I grooming - Provider Therapist: Michelle Cross PT, DPT License Number: [id number] Occupational Therapy - Arousal/Attention/Orientation Level of Consciousness: Awake, Alert Patient Orientation: Person, Place, Time - ADL/IADL Self Feeding: Set-up Help Grooming: Supervision, Verbal Cues, Set-up Help Bathing-Upper Extremity: Verbal Cues, Set-up Help, Minimal Assistance Bathing-Lower Extremity: Verbal Cues, Set-up Help, Contact Guard Dressing-Upper Extremity: Supervision, Verbal Cues, Set-up Help Dressing-Lower Extremity: Contact Guard - Sitting Balance Static Sitting: Independent without upper extremity support Dynamic Sitting: Requires supervision - Transfers Wheelchair to Bed Transfers: Supervision, Verbal Cues, Set-up Help Toilet Transfers: Verbal Cues, Set-up Help, Contact Guard - Upper Extremity Status Right Upper Extremity Comment: ROM WNL Left Upper Extremity Comment: L glenohumeral subluxation minimizing - Pain Pain (assessed during therapy session): 0 - Insight/Carryover Insight/Carryover: Fair - Patient/Family Education Comment: Stroke recovery, neglect, fall prevention, safety, ADLs and ADL transfers compensatory stategies, pt requires continued education. - Assessment/Plan Assessment: Pt continues to make progress daily, however L neglect, impaired sensation, impulsivity poor attention and L hemiplegia continues to impact pt's independence and ability to fully comprehend compensatory strategies. Pt requires continued OT services 5-6x/week to maximize independence with ADLs and ADL transfers - Goals Timeframe: 1 week Goals: S with bathing. S with shower txfers. MOD I with toilet txfers. MOD I toileting. MOD I dressing. MOD I grooming - Provider Therapist: Aminah Glasgow License Number: [id number] Speech Therapy - Consult Information Patient on Program: Yes Medical Diagnosis: CVA Treatment Diagnosis: cognitive deficits - Assessment Problem Solving Impairment: Mild Comment: impaired reasoning/though organization Speech/Articulation Impairment: Mild Comment: minimal speech deficits - Plan Assessment: Pt continues to make progress daily, however L neglect, impaired sensation, impulsivity poor attention and L hemiplegia continues to impact pt's independence and ability to fully comprehend compensatory strategies. Pt requires continued OT services 5-6x/week to maximize independence with ADLs and ADL transfers - Provider Therapist: Vidya Barrios License Number: [id number] Recreational Therapy - Participation Participation: Participates in Individual and/or Group Sessions - Attendance Attendance: 3-5 times per week - Activities Leisure Activities: Cards and Games - Socialization Level of Socialization: Initiates/interacts freely with care givers and peer - Diversional Time Diversional Time: has laptop in room, agreeable to participate in recreation therapy tasks - Assessment Assessment/Plan: Pt continues to make progress daily, however L neglect, impaired sensation, impulsivity poor attention and L hemiplegia continues to impact pt's independence and ability to fully comprehend compensatory strategies. Pt requires continued OT services 5-6x/week to maximize independence with ADLs and ADL transfers - Provider Therapist: Rebecca Akins, LIBRARY SUPERVISOR #[id number] Nutrition - Current Diet Current Diet/ Supplement/ Feedings: heart healthy advanced bite size thin liquids - Appetite Percent Meal Consumed: 50-74% - Comments Comments: Post CVA care, Safety - Assessment/Goals/Time Frame Assessment/Goals/Time Frame: Safety - Provider Provider: Cara Oshea RD Case Management - Psychosocial Assessment Support Systems: Richa (spouse)- [phone] Psychological Interventions/Needs: Patient is alert with intermittent confusion , patient with L side neglect Discharge Concerns: Patient with significant L side neglect, patient with 1 flight of steps to negotiate, currently requiring CG-min A overall for functional mobility Patient/Family Meeting: CM met with patient and rehab team Intervention/Goal/Outcome:: 1. Goal: 24 hour supervision overall. 2. Plan: Home with [facility]NS vs [facility] dependent on progress and family support- spouse to come in for formal meeting to discuss d/c options. 3. DME needs. 4. f/u appts. 5. continued emotional support. 6. caregiver training? 7. continued stay auth, LAD: 09/24. 8. Tentative discharge date: 10/03/2016 - Discharge Plan Discharge Plan: Home with services, Subacute care - Provider Provider: EVITA Rodriguez, DECATIZER License Number: [id number] Rehabilitation Plan - Discharge Plan Estimated Date of Discharge: 10/02/16 Discharge to: Subacute
--- NOTE | 2016-09-29 13:42 | CP.PCM.PN ---
Subjective - Date & Time of Evaluation Date of Evaluation: 09/29/16 Time of Evaluation: 13:41 - Subjective Subjective: Patient seen in room discussed d/c planning at length his judgement is quite flawed functionally he is much improved but cognitive and safety knight he cannot be alone and that is why we are recommending [facility] at this point Objective - Vital Signs/Intake and Output Vital Signs (last 24 hours): Temp Pulse Resp BP Pulse Ox 97.5 F L 62 20 117/71 98 09/29/16 10:00 09/29/16 10:00 09/29/16 10:00 09/29/16 10:00 09/29/16 10:00 - Medications Medications: Current Medications Acetaminophen (Tylenol 325mg Tab) 650 mg PO Q6 PRN PRN Reason: Pain, Mild (1-3) Aspirin (Aspirin Chewable) 81 mg PO DAILY [facility] Last Admin: 09/29/16 08:15 Dose: 81 mg Atorvastatin Calcium (Lipitor) 80 mg PO HS [facility] Last Admin: 09/28/16 21:14 Dose: 80 mg Betamethasone Valerate (Valisone) 1 applic TP BID [facility] Last Admin: 09/29/16 08:16 Dose: 1 applic Docusate Sodium (Colace) 100 mg PO BID [facility] Last Admin: 09/29/16 08:15 Dose: 100 mg Enoxaparin Sodium (Lovenox) 40 mg SC DAILY [facility] PRN Reason: Protocol Last Admin: 09/29/16 08:16 Dose: 40 mg - Labs Labs: 09/27/16 08:10 09/17/16 12:25 PT 11.1 Seconds (9.8-13.1) 09/17/16 12:25 INR 1.0 (0.9-1.2) 09/17/16 12:25
[2016-09-30 07:24] LABS: HEMOGLOBIN 14.2 g/dL (12.0-18.0); MEAN CELL VOLUME 91.8 fl (80.0-94.0); MEAN CORPUSCULAR HEMOGLOBIN 30.3 pg (27.0-31.0); RBC 4.67 Mil/uL (4.40-5.90); RED CELL DISTRIBUTION WIDTH 13.6 % (11.5-14.5); WHITE BLOOD COUNT 6.3 K/uL (4.8-10.8)
[2016-09-30] MEDS: Enoxaparin 40 mg Syringe SC SCH (08:38)
--- NOTE | 2016-09-30 11:22 | CP.PCM.PN ---
Subjective - Date & Time of Evaluation Date of Evaluation: 09/30/16 Time of Evaluation: 11:20 - Subjective Subjective: Patient seen in room continues to gain improved left UE ROM and function I have discussed at length with pillowcase cutter and he will now be going to [facility] @ [facility] Not a safe d/c home. He is aware of the plan Objective - Vital Signs/Intake and Output Vital Signs (last 24 hours): Temp Pulse Resp BP Pulse Ox 97.9 F 66 18 98/57 L 99 09/29/16 20:10 09/30/16 08:36 09/30/16 08:36 09/30/16 08:36 09/29/16 20:10 - Medications Medications: Current Medications Acetaminophen (Tylenol 325mg Tab) 650 mg PO Q6 PRN PRN Reason: Pain, Mild (1-3) Aspirin (Aspirin Chewable) 81 mg PO DAILY [facility] Last Admin: 09/30/16 08:39 Dose: 81 mg Atorvastatin Calcium (Lipitor) 80 mg PO HS [facility] Last Admin: 09/29/16 21:13 Dose: 80 mg Betamethasone Valerate (Valisone) 1 applic TP BID [facility] Last Admin: 09/30/16 08:38 Dose: 1 applic Docusate Sodium (Colace) 100 mg PO BID [facility] Last Admin: 09/30/16 08:39 Dose: 100 mg Enoxaparin Sodium (Lovenox) 40 mg SC DAILY [facility] PRN Reason: Protocol Last Admin: 09/30/16 08:38 Dose: 40 mg - Labs Labs: 09/30/16 06:00 09/17/16 12:25 PT 11.1 Seconds (9.8-13.1) 09/17/16 12:25 INR 1.0 (0.9-1.2) 09/17/16 12:25
--- NOTE | 2016-09-30 13:40 | CP.PCM.PN ---
Subjective - Date & Time of Evaluation Date of Evaluation: 09/30/16 Time of Evaluation: 13:30 - Subjective Subjective: Pt seen and examined. Denied any complaint. Objective - Vital Signs/Intake and Output Vital Signs (last 24 hours): Temp Pulse Resp BP Pulse Ox 97.9 F 66 18 98/57 L 99 09/29/16 20:10 09/30/16 08:36 09/30/16 08:36 09/30/16 08:36 09/29/16 20:10 - Medications Medications: Current Medications Acetaminophen (Tylenol 325mg Tab) 650 mg PO Q6 PRN PRN Reason: Pain, Mild (1-3) Aspirin (Aspirin Chewable) 81 mg PO DAILY [facility] Last Admin: 09/30/16 08:39 Dose: 81 mg Atorvastatin Calcium (Lipitor) 80 mg PO HS [facility] Last Admin: 09/29/16 21:13 Dose: 80 mg Betamethasone Valerate (Valisone) 1 applic TP BID [facility] Last Admin: 09/30/16 08:38 Dose: 1 applic Docusate Sodium (Colace) 100 mg PO BID [facility] Last Admin: 09/30/16 08:39 Dose: 100 mg Enoxaparin Sodium (Lovenox) 40 mg SC DAILY [facility] PRN Reason: Protocol Last Admin: 09/30/16 08:38 Dose: 40 mg - Labs Labs: 09/30/16 06:00 09/17/16 12:25 PT 11.1 Seconds (9.8-13.1) 09/17/16 12:25 INR 1.0 (0.9-1.2) 09/17/16 12:25 - Constitutional Appears: No Acute Distress - Head Exam Head Exam: ATRAUMATIC - Eye Exam Eye Exam: absent: Scleral icterus - ENT Exam ENT Exam: Mucous Membranes Moist - Neck Exam Neck Exam: absent: Meningismus - Respiratory Exam Respiratory Exam: absent: Rhonchi, Wheezes, Respiratory Distress - Cardiovascular Exam Cardiovascular Exam: REGULAR RHYTHM, +S1, +S2 - GI/Abdominal Exam GI & Abdominal Exam: Soft. 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 1. CVA with left sided weakness continue PT/OT continue ASA and Lipitor physiatry consult with Dr Siu appreciated Improving with PT and continue to do well 2. Asthma asymptomatic 3.DVT prophylaxis Lovenox 40mg SC daily
[2016-10-01] MEDS: Enoxaparin 40 mg Syringe SC SCH (07:59)
--- NOTE | 2016-10-01 14:51 | CP.PCM.PN ---
Subjective - Date & Time of Evaluation Date of Evaluation: 10/01/16 Time of Evaluation: 14:50 - Subjective Subjective: Patient is doing quite well ambulating over 900 feet now and cannot get placed in [facility] now unfortunately staff has just reached out to his son about coming tomorrow will need to be d/c'd home at this point as there are no further goals in spite of his cognitive safety issues. continue current care and d/c planning Objective - Vital Signs/Intake and Output Vital Signs (last 24 hours): Temp Pulse Resp BP Pulse Ox 97.0 F L 59 L 18 111/73 98 10/01/16 07:53 10/01/16 07:53 10/01/16 07:53 10/01/16 07:53 10/01/16 07:53 - Medications Medications: Current Medications Acetaminophen (Tylenol 325mg Tab) 650 mg PO Q6 PRN PRN Reason: Pain, Mild (1-3) Aspirin (Aspirin Chewable) 81 mg PO DAILY [facility] Last Admin: 10/01/16 07:59 Dose: 81 mg Atorvastatin Calcium (Lipitor) 80 mg PO HS [facility] Last Admin: 09/30/16 21:54 Dose: 80 mg Betamethasone Valerate (Valisone) 1 applic TP BID [facility] Last Admin: 10/01/16 07:59 Dose: 1 applic Docusate Sodium (Colace) 100 mg PO BID [facility] Last Admin: 10/01/16 07:59 Dose: 100 mg Enoxaparin Sodium (Lovenox) 40 mg SC DAILY [facility] PRN Reason: Protocol - Labs Labs: 09/30/16 06:00 09/17/16 12:25 PT 11.1 Seconds (9.8-13.1) 09/17/16 12:25 INR 1.0 (0.9-1.2) 09/17/16 12:25
[2016-10-01 20:10] VITALS: O2SAT 97
[2016-10-02 07:34] VITALS: BP 114/70; PULSE 63; RESP 18; TEMP 97.2
[2016-10-02] MEDS ORDERED: Enoxaparin 40 mg Syringe SC SCH (09:00)
--- NOTE | 2016-10-02 14:07 | CP.PCM.DIS ---
Provider - Provider Date of Admission: 09/14/16 14:58 Attending physician: Stephany Dumont DO Time Spent in preparation of Discharge (in minutes): 30 Hospital Course - Lab Results Lab Results: Most Recent Lab Values WBC 6.3 K/uL (4.8-10.8) 09/30/16 06:00 RBC 4.67 Mil/uL (4.40-5.90) 09/30/16 06:00 Hgb 14.2 g/dL (12.0-18.0) 09/30/16 06:00 Hct 42.9 % (35.0-51.0) 09/30/16 06:00 MCV 91.8 fl (80.0-94.0) 09/30/16 06:00 MCH 30.3 pg (27.0-31.0) 09/30/16 06:00 MCHC 33.0 g/dL (33.0-37.0) 09/30/16 06:00 RDW 13.6 % (11.5-14.5) 09/30/16 06:00 Plt Count 297 K/uL (130-400) 09/30/16 06:00 PT 11.1 Seconds (9.8-13.1) 09/17/16 12:25 INR 1.0 (0.9-1.2) 09/17/16 12:25 Sodium 142 mmol/l (132-148) 09/17/16 12:25 Potassium 4.6 MMOL/L (3.6-5.0) 09/17/16 12:25 Chloride 105 mmol/L (98-107) 09/17/16 12:25 Carbon Dioxide 26 mmol/L (22-30) 09/17/16 12:25 Anion Gap 15 (10-20) 09/17/16 12:25 BUN 19 mg/dl (9-20) 09/17/16 12:25 Creatinine 0.7 mg/dL (0.8-1.5) L 09/17/16 12:25 Est GFR ( Amer) > 60 09/17/16 12:25 Est GFR (Non-Af Amer) > 60 09/17/16 12:25 Random Glucose 104 mg/dL (75-110) 09/17/16 12:25 Calcium 9.4 mg/dL (8.4-10.2) 09/17/16 12:25 - Hospital Course Hospital Course: 56 yo male with history of asthma, psoriasis, implanted loop recorder was transferred from [facility] to acute rehab to undergo PT/OT after suffering from 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 Pt did well with physical therapy. Stable to be discharged home with son, and follow up with PCP. Appt already set up by [facility] staff. 1. CVA with left sided weakness continue PT/OT continue ASA and Lipitor physiatry consult with Dr Siu appreciated Improving with PT and continue to do well 2. Asthma asymptomatic 3.DVT prophylaxis Lovenox 40mg SC daily Discharge Exam - Head Exam Head Exam: ATRAUMATIC, NORMOCEPHALIC - Eye Exam Eye Exam: EOMI, Normal appearance, PERRL Pupil Exam: NORMAL ACCOMODATION - ENT Exam ENT Exam: Mucous Membranes Moist, Normal Oropharynx - Neck Exam Neck exam: Normal Inspection - Respiratory Exam Respiratory Exam: Clear to PA & Lateral, NORMAL BREATHING PATTERN - Cardiovascular Exam Cardiovascular Exam: REGULAR RHYTHM, RRR, +S1, +S2 - GI/Abdominal Exam GI & Abdominal Exam: Normal Bowel Sounds, Soft. absent: Organomegaly, Tenderness - Extremities Exam Extremities exam: normal capillary refill, pedal pulses present - Back Exam Back exam: absent: CVA tenderness (L), CVA tenderness (R) - Neurological Exam Neurological exam: Alert, Oriented x3 - Psychiatric Exam Psychiatric exam: Normal Affect, Normal Mood - Skin Skin Exam: Dry, Warm Discharge Plan - Discharge Medications Prescriptions: Aspirin [Aspirin Chewable] 81 mg PO DAILY #30 tab Atorvastatin [Lipitor] 80 mg PO HS #30 tab Atorvastatin [Lipitor] 80 mg PO HS #30 tab Betamethasone Valerate 0.1% [Valisone] 0.1 % TOP BID #1 oin - Follow Up Plan Condition: GOOD Disposition: HOME/ ROUTINE Additional Instructions: follow up PCP, appt set by acute rehab staff. return to ER if condition worsens.
--- NOTE | 2016-10-02 15:58 | CP.PCM.PN ---
Subjective - Date & Time of Evaluation Date of Evaluation: 10/02/16 Time of Evaluation: 15:56 - Subjective Subjective: Patient is set for d/c home now family training has been finished and he is set up as best as possible given all of the issues regarding safety as possibly can be arranged. he is ambulating on the floor independently Objective - Vital Signs/Intake and Output Vital Signs (last 24 hours): Temp Pulse Resp BP Pulse Ox 97.2 F L 63 18 114/70 97 10/02/16 07:34 10/02/16 07:34 10/02/16 07:34 10/02/16 07:34 10/02/16 07:34 - Medications Medications: Current Medications Acetaminophen (Tylenol 325mg Tab) 650 mg PO Q6 PRN PRN Reason: Pain, Mild (1-3) Aspirin (Aspirin Chewable) 81 mg PO DAILY [facility] Last Admin: 10/02/16 08:46 Dose: 81 mg Atorvastatin Calcium (Lipitor) 80 mg PO HS [facility] Last Admin: 10/01/16 21:03 Dose: 80 mg Betamethasone Valerate (Valisone) 1 applic TP BID [facility] Last Admin: 10/02/16 08:46 Dose: 1 applic Docusate Sodium (Colace) 100 mg PO BID [facility] Last Admin: 10/02/16 08:46 Dose: 100 mg Enoxaparin Sodium (Lovenox) 40 mg SC DAILY [facility] PRN Reason: Protocol Last Admin: 10/02/16 08:46 Dose: 40 mg - Labs Labs: 09/30/16 06:00 09/17/16 12:25 PT 11.1 Seconds (9.8-13.1) 09/17/16 12:25 INR 1.0 (0.9-1.2) 09/17/16 12:25
== END 2016-10-02 16:53 | disposition home health service (06) | DRG 12 ==
PROVIDERS: ADMIT Student in an Organized Health Care Education/Training Program; ATTEND Student in an Organized Health Care Education/Training Program
PROC: F07Z9FZ Gait Training/Functional Ambulation Treatment using Assistive, Adaptive, Supportive or Protective Equipment (ICD-10-PCS; principal; 2016-09-14)
PROC: F08Z2FZ Grooming/Personal Hygiene Treatment using Assistive, Adaptive, Supportive or Protective Equipment (ICD-10-PCS; 2016-09-14)
PROC: F07M6FZ Therapeutic Exercise Treatment of Musculoskeletal System - Whole Body using Assistive, Adaptive, Supportive or Protective Equipment (ICD-10-PCS; 2016-09-14)
DX: I69.354 Hemiplegia and hemiparesis following cerebral infarction affecting left non-dominant side (principal); I69.392 Facial weakness following cerebral infarction; I10 Essential (primary) hypertension; J45.909 Unspecified asthma, uncomplicated; F43.20 Adjustment disorder, unspecified; L40.9 Psoriasis, unspecified; F12.90 Cannabis use, unspecified, uncomplicated; F17.210 Nicotine dependence, cigarettes, uncomplicated